=== PATIENT | female | born 1985 | race Caucasian/White ===

== ENCOUNTER 2017-02-21 18:44 | Emergency (ER) | payer MEDICAID ==
[~2017-02-21] VITALS: Ht 167.6 cm; Wt 102.1 kg
[2017-02-21 18:52] VITALS: BP 116/73
== END 2017-02-21 21:54 | disposition left against medical advice (07) ==
LOC: EDBD 18:44 → ER 18:49
DX: R56.9 Unspecified convulsions (principal); Z53.21 Procedure and treatment not carried out due to patient leaving prior to being seen by health care provider